=== PATIENT | female | born 1995 | race African-American/Black ===

== ENCOUNTER 2017-12-11 15:49 | Emergency (ER) | payer SELFPAY | END 2017-12-11 16:32 | disposition left against medical advice (07) | LOC: E/R 15:49 | DX: Z53.21 Procedure and treatment not carried out due to patient leaving prior to being seen by health care provider (principal) ==

== ENCOUNTER 2017-12-13 18:27 | Emergency (ER) | payer MEDICAID | END 2017-12-13 18:46 | disposition home or self-care (01) | LOC: E/R 18:27 | DX: H10.9 Unspecified conjunctivitis (principal) | CPT/HCPCS: 99283; Z7502 ==